=== PATIENT | male | born 1955 | race Two or more races ===

== ENCOUNTER 2017-08-05 14:54 | Emergency (ER) | payer BC ==
[2017-08-05 15:11] VITALS: BP 148/80
--- NOTE | 2017-08-05 16:16 | RAD ---
INDICATION: Left flank pain COMPARISON: None TECHNIQUE: Noncontrast axial source images were acquired from the level hemidiaphragms to the symphysis pubis as part of CT imaging for renal stone. Lung bases: The lung bases are clear. Liver: The liver is normal in size. Noncontrast imaging shows no evidence of a hepatic mass or ductal dilatation. Gallbladder: The gallbladder is contracted. Spleen: The spleen is normal in size. The noncontrast CT appearance is normal. Pancreas: Noncontrast imaging shows no pancreatic mass or ductal dilitation. Adrenal glands: No masses are identified. Kidneys/Bladder: There is mild left-sided perinephric stranding and there is mild fullness of the left ureter. There is no CT evidence of urolithiasis but the findings suggest the possibility of recent passage of a stone. There are multiple vascular calcifications one of which is along the course of the left ureter. The bladder is unremarkable. There is no evidence of a bladder calculus. Adenopathy: There is no evidence of intraperitoneal or retroperitoneal adenopathy. Evaluation is limited without oral contrast. Fluid collections: There are no free or localized fluid collections. Vessels: The aorta and iliac vessels are normal in caliber. There are no significant atherosclerotic changes. The IVC appears normal Pelvic organs: The prostate and seminal vesicles appear normal GI tract: Evaluation of the bowel is limited without oral contrast. The stomach, small bowel, and lower GI tract appear grossly normal. There are no obstructive findings. The appendix is visualized and appears normal. Soft tissues: No soft tissue abnormalities of the extraperitoneal abdomen or pelvis are identified. Osseous structures: There are no acute osseous findings. IMPRESSION: MILD LEFT-SIDED PERINEPHRIC STRANDING WITHOUT DEFINITIVE EVIDENCE OF UROLITHIASIS. THERE MAY BEEN RECENT PASSAGE OF A STONE. CORRELATE WITH URINALYSIS.
== END 2017-08-05 16:45 | disposition left against medical advice (07) ==
LOC: ED 14:54
DX: R10.9 Unspecified abdominal pain (principal); Z53.21 Procedure and treatment not carried out due to patient leaving prior to being seen by health care provider
CPT/HCPCS: 74176; 99281

== ENCOUNTER 2019-04-26 07:56 | Emergency (ER) | payer BC ==
[2019-04-26 08:12] VITALS: BP 126/88
== END 2019-04-26 09:44 | disposition left against medical advice (07) ==
LOC: UCEAST 07:56
DX: Z53.21 Procedure and treatment not carried out due to patient leaving prior to being seen by health care provider (principal)